=== PATIENT | female | born 1955 ===

== ENCOUNTER → 2017-01-18 | Outpatient (CLI) | payer OTHER ==
[~2017-01-18] MED LIST: LIDOCAINE 1% 300 MG/30 ML SDV ONE
== END ==
LOC: FIMAGING 09:27
PROVIDERS: ATTEND Internal Medicine Hematology & Oncology
PROC: 0JBC3ZX Excision of Pelvic Region Subcutaneous Tissue and Fascia, Percutaneous Approach, Diagnostic (ICD-10-PCS; principal; 2017-01-18)
DX: C79.89 Secondary malignant neoplasm of other specified sites (principal); C34.32 Malignant neoplasm of lower lobe, left bronchus or lung; Z85.3 Personal history of malignant neoplasm of breast

== ENCOUNTER 2017-02-19 12:08 | Day surgery (SDC) | payer OTHER ==
--- NOTE | 2017-02-18 21:55 | GHP ---
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 So far she has had some radiation domitila atment for metastases to her brain, but she has not started chemotherapy. She is here to discuss po rt placement to begin chemotherapy this . PAST MEDICAL HISTORY: Includes breast cancer about 22 years ago with lumpectomy and radiation treat ment. Recent insomnia since diagnosis, never prior. PAST SURGICAL HISTORY: Includes partial hysterectomy, tonsillectomy, bladder sling, appendectomy. HOME MEDICATIONS: Include dexamethasone and lorazepam. ALLERGIES: Morphine results in itching and swelling. SOCIAL HISTORY: The patient presents with her . She does have a tobacco history. PHYSICAL EXAMINATION: GENERAL: Well-groomed, well-nourished pleasant 61-year-old female, in no acu te distress. HEENT: Normocephalic, atraumatic. Brodie complexion. Pupils are equal and round. No scleral icterus. CHEST: Clear to auscultation bilaterally without wheezes, rhonchi, or rales. No accessory muscle use. CARDIAC: Regular rate and rhythm. ABDOMEN: Soft, nontender. EXTREMITIES: Warm and dry. PSYCHIATRIC: Normal mood and affect. SKIN: Warm and dry. IMPRESSION: This is a 61-year-old female with advanced lung cancer in need of a port to begin chemo therapy treatments. PLAN: Proceed with a PowerPort placement with fluoroscopic guidance. Again, risks and options have been discussed and she requests to proceed. Specifically, we discussed risks of bleeding, infectio n, injury to a nerve, pneumothorax, need for revision, port malfunction and other problems, and she requests to proceed. Due to her cancer being on the left, we will most likely place the port on the right side, despite her being right handed. She was also seen and examined by Dr. Gutierrez today. /[id number]/MODL
--- NOTE | 2017-02-19 09:04 | PDHPUP ---
History & Physical Update H&P update statement: This history and physical update is based on an assessment of the patient which was completed after admission or registration (within 24 hours), but prior to the surgery/procedure. H&P update: H&P reviewed & patient examined, no change in patient's condition since H&P completed
[2017-02-19] MEDS ORDERED: LIDOCAINE 1% 300 MG/30 ML SDV ONE (12:28)
[2017-02-19] MEDS ORDERED: SODIUM BICARBONATE 10 MEQ/10 ML SYR IVP ONE (12:28)
[2017-02-19] MEDS ORDERED: BUPIVACAINE 0.5% 30 ML SDV ONE (12:28)
[2017-02-19] MEDS ORDERED: ceFAZolin 2 GM/DEXTROSE 100 ML IV ONE (12:29)
[2017-02-19] MEDS ORDERED: CEFAZOLIN 2 GM/DEXTROSE/100 ML BAG IV ONE (12:43)
[2017-02-19] MEDS ORDERED: MIDAZOLAM 2 MG/2 ML VIAL ONE (12:56)
[2017-02-19] MEDS ORDERED: MIDAZOLAM 2 MG/2 ML VIAL IVP ONE (12:57)
--- NOTE | 2017-02-19 12:57 | PDANEPAE ---
ANE History of Present Illness 61 yo for port ANE Past Medical History - Cardiovascular History Hx Hypertension: No Hx Arrhythmias: No Hx Chest Pain: No Hx Coronary Artery / Peripheral Vascular Disease: No Hx CHF / Valvular Disease: No Hx Palpitations: No - Pulmonary History Hx COPD: No Hx Asthma/Reactive Airway Disease: No Hx Recent Upper Respiratory Infection: No Hx Sleep Apnea: No Sleep Apnea Screening Result - Last Documented: Negative Pulmonary History Comment: CA LUNG - Neurologic History Hx Cerebrovascular Accident: No Hx Seizures: No Hx Dementia: No - Endocrine History Hx Diabetes: No - Renal History Hx Renal Disorders: No - Liver History Hx Hepatic Disorders: No - Neurological & Psychiatric Hx Hx Neurological and Psychiatric Disorders: Yes Neurological / Psychiatric History Comment: ANXIETY - Cancer History Hx Cancer: Yes Cancer History Comment: breast CA L. breast. LUNG - Congenital Disorder History Hx Congenital Disorders: No - GI History Hx Gastrointestinal Disorders: No Gastrointestinal History Comment: gastric reflux - Other Health History Other Health History: IV bruises - Chronic Pain History Chronic Pain: No - Surgical History Prior Surgeries: lumpectomy L. breast, hysterectomy, bladder tied, tonsilectomy , colonoscopy x2 2016. APPENDECTOMY ANE Review of Systems - Exercise capacity METS (RN): 4 METS ANE Patient History - Allergies Allergies/Adverse Reactions: morphine Allergy (Severe, Verified 01/17/17 10:35) Anaphylaxis - Home Medications Home medications: home medication list seen and reviewed Home Medications: Aleve 220 MG (*) 220 mg PO PRN 01/17/17 [Last Taken Unknown] DEXAMETHASONE 400 mg PO Q6HRS 01/17/17 [Last Taken 02/19/17 0430] - NPO status NPO Since - Liquids (Date): 02/18/17 NPO Since - Liquids (Time): 22:30 NPO Since - Solids (Date): 02/18/17 NPO Since - Solids (Time): 22:30 - Anes Hx Anes Hx: no prior problems - Smoking Hx Smoking Status: Former smoker ANE Labs/Vital Signs - Vital Signs Blood Pressure: 166/98 Heart Rate: 72 Respiratory Rate: 15 O2 Sat (%): 97 Height: 5 ft 1 in Weight: 48.988 kg ANE Physical Exam - Airway Neck exam: FROM Mallampati Score: Class 1 Mouth exam: normal dental/mouth exam - Pulmonary Pulmonary: no respiratory distress - Cardiovascular Cardiovascular: regular rate and rhythym - ASA Status ASA Status: II ANE Anesthesia Plan Anesthesia Plan: MAC
[2017-02-19] MEDS ORDERED: fentaNYL 100 MCG/2 ML INJ ONE (13:01)
[2017-02-19] MEDS ORDERED: PROPOFOL/EMULSION 500 MG/50 ML BOTTLE IV ONE (13:01)
[2017-02-19] MEDS ORDERED: NALOXONE HCL 0.4 MG/ML INJ IVP PRN (13:27)
[2017-02-19] MEDS ORDERED: ONDANSETRON 4 MG/2 ML VIAL IVP PRN (13:27)
[2017-02-19] MEDS ORDERED: HYDROCODONE/APAP 5/325 TAB PO PRN ×2 (13:27→14:31)
[2017-02-19] MEDS ORDERED: fentaNYL 100 MCG/2 ML INJ IVP PRN (13:27)
--- NOTE | 2017-02-19 13:52 | POSTANESTH ---
Post Anesthetic Evaluation Cardiovascular Status: Normal, Stable Respiratory Status: Normal, Stable Level of Consciousness/Mental Status: Can Participate in Eval Pain Control: Adequate, Prn Tx Ordered Nausea/Vomiting Control: Adequate, Prn Tx Ordered
[2017-02-19 16:06] VITALS: O2SAT 95
[2017-02-19 16:21] VITALS: BP 170/97; PULSE 64; RESP 14; TEMP 98.2
== END 2017-02-19 16:22 | disposition home or self-care (01) ==
LOC: FSGY 12:08
PROVIDERS: ATTEND Surgery
PROC: 02H633Z Insertion of Infusion Device into Right Atrium, Percutaneous Approach (ICD-10-PCS; principal; 2017-02-19 14:00)
PROC: 0JH60XZ Insertion of Tunneled Vascular Access Device into Chest Subcutaneous Tissue and Fascia, Open Approach (ICD-10-PCS; principal; 2017-02-19 14:00)
DX: C34.90 Malignant neoplasm of unspecified part of unspecified bronchus or lung (principal); C79.31 Secondary malignant neoplasm of brain; Z92.3 Personal history of irradiation
CPT/HCPCS: C1788; J0690; J1642; J2250; J2704; J3010

== ENCOUNTER → 2017-09-06 | Outpatient (CLI) | payer BC, OTHER | LOC: FIMAGING 13:28 | PROVIDERS: ATTEND Internal Medicine Hematology & Oncology | PROC: 0JB93ZX Excision of Buttock Subcutaneous Tissue and Fascia, Percutaneous Approach, Diagnostic (ICD-10-PCS; principal; 2017-09-06) | DX: C79.89 Secondary malignant neoplasm of other specified sites (principal); C34.32 Malignant neoplasm of lower lobe, left bronchus or lung; Z85.3 Personal history of malignant neoplasm of breast ==

== ENCOUNTER → 2017-09-12 | Outpatient (CLI) | payer OTHER | LOC: FIMAGING 08:43 | PROVIDERS: ATTEND Internal Medicine Hematology & Oncology | DX: C50.919 Malignant neoplasm of unspecified site of unspecified female breast (principal) | CPT/HCPCS: A9503 ==

== ENCOUNTER → 2017-09-20 | Outpatient (CLI) | payer OTHER ==
[~2017-09-20] MED LIST changes: +GADOBUTROL 10 ML VIAL IVP ONE; -LIDOCAINE 1% 300 MG/30 ML SDV ONE
== END ==
LOC: FIMAGING 06:51
PROVIDERS: ATTEND Internal Medicine Hematology & Oncology
DX: C79.31 Secondary malignant neoplasm of brain (principal); C79.72 Secondary malignant neoplasm of left adrenal gland; C34.32 Malignant neoplasm of lower lobe, left bronchus or lung
CPT/HCPCS: A9585

== ENCOUNTER 2018-04-28 12:22 | Day surgery (SDC) | payer BC ==
[2018-04-28] MEDS ORDERED: fentaNYL 100 MCG/2 ML INJ ONE (13:08)
[2018-04-28] MEDS ORDERED: FLUMAZENIL 0.5 MG/5 ML MDV IVP ONE (13:08)
[2018-04-28] MEDS ORDERED: NALOXONE HCL 0.4 MG/ML INJ ONE (13:08)
[2018-04-28] MEDS ORDERED: MIDAZOLAM 2 MG/2 ML VIAL ONE (13:08)
[2018-04-28 13:47] LABS: PLATELET COUNT 257 10^3/uL (150-400)
[2018-04-28] MEDS ORDERED: NALOXONE HCL 0.4 MG/ML INJ IVP PRN (14:19)
[2018-04-28] MEDS ORDERED: FLUMAZENIL 0.5 MG/5 ML MDV IVP PRN (14:19)
[2018-04-28] MEDS ORDERED: GLUCAGON HCL 1 MG VIAL IVP PRN (14:19)
[2018-04-28] MEDS ORDERED: MIDAZOLAM 2 MG/2 ML VIAL IVP PRN (14:19)
[2018-04-28] MEDS ORDERED: ALTEPLASE 2 MG VIAL IVP PRN (14:19)
[2018-04-28] MEDS ORDERED: hydrALAZINE 20 MG/ML VIAL IVP PRN (14:19)
[2018-04-28] MEDS ORDERED: PROTAMINE SULFATE 50 MG/5 ML VIAL IVP PRN (14:19)
[2018-04-28] MEDS ORDERED: MEPERIDINE 25 MG/ML SYR IVP PRN (14:19)
[2018-04-28] MEDS ORDERED: HEPARIN 10,000 UNIT/10 ML MDV (1,000 UNIT/ML) IVP PRN (14:19)
[2018-04-28] MEDS ORDERED: fentaNYL 100 MCG/2 ML INJ IVP PRN (14:19)
--- NOTE | 2018-04-28 14:22 | PDRADPRE ---
Radiology History & Physical Indication for procedure: lung nodule/mass Home medications: Allergy Medicine 1 tab PO DAILY 04/28/18 [Last Taken 04/27/18] Gabapentin 300 mg PO HS 04/28/18 [Last Taken Unknown] Lisinopril 20 mg PO DAILY 04/28/18 [Last Taken 04/28/18] Tylenol 1,000 mg PO PRN PRN 04/28/18 [Last Taken Unknown] Venlafaxine 37.5MG (*) 37.5 mg PO DAILY 04/28/18 [Last Taken 04/28/18] Allergies/Adverse Reactions: morphine Allergy (Severe, Verified 04/28/18 13:34) Anaphylaxis, Itching, Swelling Mental status: A&Ox3 Heart exam: regular rate and rhythm
--- NOTE | 2018-04-28 14:22 | PDPROPOC ---
Sedation Plan of Care ASA Classification: ASA 2 Mallampati Score: Class 2 Mallampati Reference Image:
[2018-04-28] MEDS ORDERED: NS 1,000 ML IV SCH (14:30)
[2018-04-28 15:00] LABS: PROTIME(PATIENT) 13.4 SEC (12.0-15.0)
[2018-04-28] MEDS ORDERED: LIDO/EPI 1% **Not for Epidural 20 ML MDV ONE (15:20)
[2018-04-28] MEDS ORDERED: LIDOCAINE 1% 300 MG/30 ML SDV ONE (15:22)
[2018-04-28] MEDS ORDERED: ONDANSETRON 4 MG/2 ML VIAL IVP PRN (16:31)
[2018-04-28] MEDS ORDERED: ACETAMINOPHEN 325 MG TAB PO PRN (16:31)
[2018-04-28] MEDS ORDERED: ACETAMINOPHEN 325 MG TAB ONE (17:10)
[2018-04-28] MEDS ORDERED: ONDANSETRON 4 MG/2 ML VIAL ONE (20:15)
[2018-04-28 20:21] VITALS: BP 149/94
[2018-04-28] MEDS ORDERED: oxyCODONE IR 5 MG TAB ONE (20:51)
[2018-04-28] MEDS ORDERED: oxyCODONE IR 5 MG TAB PO ONE (21:15)
== END 2018-04-28 21:50 | disposition home or self-care (01) ==
LOC: FIMAGING 12:22
PROVIDERS: ATTEND Radiology Radiation Oncology
DX: C79.72 Secondary malignant neoplasm of left adrenal gland (principal); Z85.118 Personal history of other malignant neoplasm of bronchus and lung
CPT/HCPCS: J1642; J2250; J2310; J2405; J3010

== ENCOUNTER → 2018-05-26 | Outpatient (CLI) | payer BC | LOC: FIMAGING 06:44 | PROVIDERS: ATTEND Internal Medicine Hematology & Oncology | DX: R90.89 Other abnormal findings on diagnostic imaging of central nervous system (principal); C50.412 Malignant neoplasm of upper-outer quadrant of left female breast; C34.32 Malignant neoplasm of lower lobe, left bronchus or lung | CPT/HCPCS: A9585 ==

== ENCOUNTER → 2018-07-07 | Outpatient (CLI) | payer BC | LOC: FIMAGING 17:43 | PROVIDERS: ATTEND Internal Medicine Hematology & Oncology | DX: R94.02 Abnormal brain scan (principal); R26.89 Other abnormalities of gait and mobility; R53.1 Weakness; C34.32 Malignant neoplasm of lower lobe, left bronchus or lung | CPT/HCPCS: A9585 ==